=== PATIENT | female | born 1985 | race African-American/Black ===

== ENCOUNTER 2020-12-30 00:18 | Emergency (ER) | payer BC, MEDICAID, SELFPAY ==
[2020-12-30] MEDS ORDERED: Ibuprofen 400 MG TAB ONE (01:52)
== END 2020-12-30 01:12 | disposition home or self-care (01) ==
LOC: MADERS 00:18
DX: S09.90XA Unspecified injury of head, initial encounter (principal); F43.0 Acute stress reaction; F41.9 Anxiety disorder, unspecified; W18.30XA Fall on same level, unspecified, initial encounter; Y92.008 Other place in unspecified non-institutional (private) residence as the place of occurrence of the external cause
CPT/HCPCS: 99283